=== PATIENT | female | born 1940 | race Caucasian/White ===

== ENCOUNTER 2024-03-12 17:57 | Emergency (ER) | payer OTHER ==
--- OUTSIDE RECORDS SUMMARY | 2024-03-12 18:00 | XMS REPORT | Continuity of Care Document ---
Author Name Unknown Address [address] [facility] 1 [address] [place] [id number] [facility] thconnect Address [address] [facility] 1 [address] [place] [address] Care Team Providers Care Regional Business Development Manager Name Role Phone Latrice Quesada Attending Clinician Unavailable Isra Montes Attending Clinician Unavailable Isra Montes Admitting Clinician Unavailable Payers Payer Name Policy Type Policy Number Effective Date Expirati on Date Source Problems Condition Name Condition Details Condition Category Status Onset Date Resolution Date Last Treatment Date Treating Clinician Comments Source Pain in pelvis Pain in Pelvis Problem Active 2023-03 00:00: 00 [facility] Osteoarthr itis of right hip joint Osteoarthr itis of Right Hip Joint Problem Active 2023-03 00:00: 00 [facility] Allergies, Adverse Reactions, Alerts Allergy Name Allergy Type Status Severity Reaction(s) Onset Date Inactive Date Treating Clinician Comments Source No Known Allergie s DA Active U 2023-03 00:00: 00 [facility] Social History Smoking Status Start Date Stop Date Source Former Smoker [facility] Vital Signs Vital Name Observation Time Observation Value Comments S ource Body Weight 2024-02-12 00:00:00 180 [lb_av] [facility] Height 2024-02-12 00:00:00 65 [in_i] Jeanette[facility] a [facility] BMI (Body Mass Index) 2024-02-12 00:00:00 30 kg/m2 [facility] Procedures Procedure Date / Time Performed Performing Clinicia n Source RADEX PELVIS 1/2 VIEWS 2024-02-12 00:00:00 [facility] Encounters Start Date/Time End Date/Time Encounter Type Admission Type Attending Clinicians Care Facility Care Department Encounter ID Source 2022-08-19 14:13:02 Outpatient Latrice Quesada [facility] [id number] [facility] 2024-03-09 07:17:00 2024-03-10 12:26:00 Outpatient Isra Bone [facility] [id number] [facility] 2024-02-19 18:41:00 2024-02-19 18:41:00 Outpatient Isra Montes [facility]O [id number] 85 [facility] 2024-02-12 00:00:00 2024-02-12 00:00:00 Isra Montes MD: [id number] [place] [address] , Ph. [phone] [place] - [facility] [place] [facility] [place] [id number] [facility] Results Test Description Test Time Test Comments Results Resul t Comments Source - XR PELVIS 1/2 VIEWS 2024-03-10 06:49:00 [facility] : 1940 Sex: F Patient Name: MOISES THOMPSON Unit No: [id number] EXAMS: CPT CODE: [id number] XR PELVIS 1/2 VIEWS 42151 INTRAOPERATIVE LEG LENGTH FILM COMMENT: COMPARISON: No prior exams available. In progress right hip replacement is noted. AP portable right hip COMMENT: The patient is status post joint replacement which is articulating normally. at 0649 Reported and signed by: Fareed Rodriguez MD CC: Isra Montes MD Technologist: Josh Armendariz R.T. Transcribed D/ (0649) [facility] NAME: MOISES THOMPSON [address] [facility] PHYS: Isra Helton MD : 1940 AGE: 83 SEX: F [place] [address] LOC: Y.308 A PHONE #: [phone] EXAM DATE: 03/09/2024 STATUS: [facility] FAX #: [phone] RAD #: D/C DT PAGE 1 Signed Report Patient Name: MOISES THOMPSON Unit No: [id number] EXAMS: CPT CODE: [id number] XR PELVIS 1/2 VIEWS 45634 (Continued) Orig Print D/T: S: 03/10/2024 (0652) [facility] NAME: MOISES THOMPSON [address] [facility] PHYS: Isra Helton MD : 1940 AGE: 83 SEX: F [place], [place] [address] LOC: Y.308 A PHONE #: [phone] EXAM DATE: 03/09/2024 STATUS: [facility] FAX #: [phone] RAD #: D/C DT PAGE 2 Signed Report - XR PELVIS 1/2 VIEWS 2024-03-10 06:49:00 [facility] : 1940 Sex: F Patient Name: MOISES THOMPSON Unit No: [id number] EXAMS: CPT CODE: [id number] XR PELVIS 1/2 VIEWS 71665 INTRAOPERATIVE LEG LENGTH FILM COMMENT: COMPARISON: No prior exams available. In progress right hip replacement is noted. AP portable right hip COMMENT: The patient is status post joint replacement which is articulating normally. at 0649 Reported and signed by: Fareed Rodriguez MD CC: Isra Montes MD Technologist: ANA QUINONES ARRT; ANNABELLE SYED ARRT Transcribed D/ (0649) [facility] NAME: MOISES THOMPSON 01 [facility] PHYS: Isra Helton MD : 1940 AGE: 83 SEX: F [place] [address] LOC: Y.308 A PHONE #: [phone] EXAM DATE: 03/09/2024 STATUS: [facility] FAX #: [phone] RAD #: D/C DT PAGE 1 Signed Report Patient Name: MOISES THOMPSON Unit No: [id number] EXAMS: CPT CODE: [id number] XR PELVIS 1/2 VIEWS 98099 (Continued) Orig Print D/T: S: 03/10/2024 (0652) [facility] NAME: MOISES THOMPSON [address] [facility] PHYS: Isra Helton MD : 1940 AGE: 83 SEX: F [place], [place] [address] LOC: Y.308 A PHONE #: [phone] EXAM DATE: 03/09/2024 STATUS: [facility] FAX #: [phone] RAD #: D/C DT PAGE 2 Signed Report SPECIMEN COMMENT: POD #1
--- NOTE | 2024-03-12 19:25 | RAD REPORT ---
EXAMINATION: XR Hip Right 2 View CLINICAL INDICATION: Female, 83 years old. [facility] MAIN fall, hip sx was Friday Bed: TECHNIQUE: 2 view radiograph of the right hip were obtained. COMPARISON: No prior exam. FINDINGS: No evidence of fracture or dislocation. Right hip arthroplasty hardware in satisfactory ali gnment. No evidence of complications. No suspicious focal bone lesion. Soft tissues are unremarkable. IMPRESSION: No acute or significant abnormalities.
--- NOTE | 2024-03-12 19:25 | RAD REPORT ---
EXAM: CT brain without contrast HISTORY: fall COMPARISON: None TECHNIQUE: Multiple contiguous axial images were obtained and a CT of the brain without contrast. Sag ittal and coronal reformats were performed. FINDINGS: No evidence of hydrocephalus, intracranial hemorrhage, or extra-axial fluid collection. Mild diffuse parenchymal volume loss. Partially empty sella noted. The brain is otherwise normal in m orphology. The calvarium is intact. The visualized paranasal sinuses and mastoid air cells are essentially clear . IMPRESSION: No evidence of acute intracranial abnormality. EXAM: CT of the cervical spine without contrast HISTORY: fall COMPARISON: None TECHNIQUE: Multiple contiguous axial images were obtained in a CT of the cervical spine without contr ast. Sagittal and coronal reformats were performed. FINDINGS: The vertebral bodies demonstrate normal height and alignment. No evidence of acute fracture or subluxation.. [id number]-[id number] degenerative changes most pronounced at C5-6, with endplate spurring contributing to mild central canal stenosis, with uncovertebral joint spurring contributing to bilateral moderate neural foraminal narrowing. No prevertebral soft tissue swelling is seen. The posterior facets are well aligned. Normal alignment of the skull base with the cervical spine is seen. The lung apices are unremarkable. IMPRESSION: No evidence of acute osseous abnormality of the cervical spine. Degenerative changes as above.
--- NOTE | 2024-03-12 19:45 | EDPHYS ---
Physician Documentation [facility] Name: Jelly Pollard Age: 83 yrs Sex: Female : 1940 Arrival Date: 03/12/2024 Time: 17:57 Bed 6 Private MD: ED Physician Cuong Palma HPI: 03/12 21:07 This 83 yrs old Female presents to ER via Wheelchair with complaints of Fall Injury - ms3 Post Sx. 21:07 Jelly Pollard is an 83-year-old female who presents to the emergency department ms3 following a fall. She reports having had right hip surgery on Friday, performed by Dr. Isra Montes at the [facility]. Today, while using a walker to get off the toilet, she lost her balance and fell into the shower. She took her first pain pill this morning. She reports no pain while sitting but increased pain when standing. She did not lose consciousness during the fall. 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 Historical: - Allergies: 18:30 No Known Allergies; tm6 - PMHx: 18:30 Hypercholesterolemia; Hypertensive disorder; tm6 - PSHx: 18:30 right hip replacement; tm6 - Immunization history:: Flu vaccine is up to date. - Infectious Disease History:: Denies. - Social history:: Smoking status: Patient/guardian denies using tobacco, but has a distant history of tobacco abuse. ROS: 21:07 Constitutional: Negative for fever, and chills. Cardiovascular: Negative for chest ms3 pain, and palpitations. Respiratory: Negative for shortness of breath, cough, wheezing, and pleuritic chest pain, Abdomen/GI: Negative for abdominal pain, nausea, vomiting, diarrhea, and constipation, 21:07 MS/extremity: Positive for Right hip pain, Exam: 21:07 Constitutional: This is a well developed, well nourished patient who is awake, alert, ms3 and in no acute distress. Chest/axilla: Normal chest wall appearance and motion. Nontender with no deformity. Cardiovascular: Regular rate and rhythm with a normal S1 and S2. No gallops, murmurs, or rubs. Normal PMI, no JVD. No pulse deficits. Respiratory: Lungs have equal breath sounds bilaterally, clear to auscultation and percussion. No rales, rhonchi or wheezes noted. No increased work of breathing, no retractions or nasal flaring. Abdomen/GI: Soft, non-tender, with normal bowel sounds. No distension or tympany. No guarding or rebound. No evidence of tenderness throughout. Skin: Warm, dry with normal turgor. Normal color with no rashes, no lesions, and no evidence of cellulitis. 21:07 Musculoskeletal/extremity: Right lateral hip incision without wound dehiscence. No dressing present on incision. Vital Signs: 18:28 BP 141 / 67; Pulse 54; Resp 19; Temp 97.7(TE); Pulse Ox 99% on R/A; MAP 87 mmHg; Weight tm6 80.29 kg; Height 5 ft. 3 in. ; Pain 0/10; 20:20 BP 138 / 74; Pulse 57; Resp 18; Pulse Ox 99% ; cp4 18:28 Body Mass Index 31.35 (80.29 kg, 160.02 cm) tm6 18:28 Pain Scale: Adult tm6 MDM: 18:14 Medical Screening Exam initiated ms3 21:07 Differential diagnosis: contusion, fracture, sprain, strain. Differential diagnosis: ms3 closed head injury. Data reviewed: vital signs, nurses notes. Historians other than the Patient: Family Member: . Care significantly affected by the following chronic conditions: Hypertension. Counseling: I had a detailed discussion with the patient and/or guardian regarding the historical points, exam findings, and any diagnostic results supporting the discharge/admit diagnosis, radiology results, the need for outpatient follow up, to return to the emergency department if symptoms worsen or persist or if there are any questions or concerns that arise at home. Special discussion: I discussed with the patient/guardian in detail that at this point there is no indication for admission to the hospital. It is understood, however, that if the symptoms persist or worsen the patient needs to return immediately for re-evaluation. ED course: Discussed negative CT of head and neck with the patient and her family. Right hip x-ray does not reveal fracture or abnormalities. Patient to follow-up Dr. Montes in 2 to 3 days for reevaluation. Patient and her family understand and agree with plan. All questions were answered. Return precautions discussed include worsening symptoms, or any other concerns. On reevaluation patient is alert, no apparent distress, nontoxic-appearing, speaking full sentences. 03/12 18:15 Order name: CT Head C Spine; Complete Time: 19:37 ms3 03/12 18:15 Order name: Hip Right 2 View XRAY; Complete Time: 19:37 ms3 Administered Medications: No medications were administered Disposition Summary: 03/12/24 19:45 Discharge Ordered Notes: Location: Home ms3 Condition: Stable ms3 Diagnosis - Fall on same level, unspecified ms3 - Pain in right hip ms3 Followup: ms3 - With: Private Physician - When: 2 - 3 days - Reason: Discharge Instructions: - Discharge Summary Sheet ms3 - Musculoskeletal Pain ms3 Forms: - Medication Reconciliation Form ms3 - Antibiotic Education ms3 - Prescription Opioid Use ms3 - Patient Portal Instructions ms3 - Leadership Thank You Letter ms3 Signatures: Dispatcher [employer] EDMS Cuong Palma DO DO ms3 Fiilpe Flannery RN RN tm6 Corrections: (The following items were deleted from the chart) 18:15 18:15 Head C Spine MPR Wo Con+CT.RAD.BRZ ordered. EDMS EDMS 18:15 18:15 Hip Right 2 View+RAD.RAD.BRZ ordered. EDMS EDMS
--- NOTE | 2024-03-12 19:45 | ER ---
Nurse's Notes [facility] Name: Jelly Pollard Age: 83 yrs Sex: Female : 1940 Arrival Date: 03/12/2024 Time: 17:57 Bed 6 Private MD: Diagnosis: Fall on same level, unspecified;Pain in right hip Presentation: 03/12 18:28 Chief complaint: Patient states: had right hip replacement on Friday, fell today about tm6 4pm when using the restroom. Coronavirus screen: Client denies travel out of the [place] in the last 14 days. Ebola Screen: Patient negative for fever greater than or equal to 101.5 degrees Fahrenheit, and additional compatible Ebola Virus Disease symptoms Patient denies exposure to infectious person. Patient denies travel to an Ebola-affected area in the 21 days before illness onset. No symptoms or risks identified at this time. Initial Sepsis Screen: Does the patient meet any 2 criteria? No. Patient's initial sepsis screen is negative. Does the patient have a suspected source of infection? No. Patient's initial sepsis screen is negative. Risk Assessment: Do you want to hurt yourself or someone else? Patient reports no desire to harm self or others. Onset of symptoms was March 12, 2024. 18:28 Method Of Arrival: Wheelchair tm6 18:28 Acuity: DEANA 4 tm6 Triage Assessment: 18:30 General: Appears in no apparent distress. Behavior is calm, cooperative. Pain: tm6 Complains of pain in right hip. EENT: No signs and/or symptoms were reported regarding the EENT system. Neuro: Level of Consciousness is awake, alert, obeys commands, Oriented to person, place, time, situation. Cardiovascular: Patient's skin is warm and dry. Respiratory: Airway is patent Respiratory effort is even, unlabored, Respiratory pattern is regular, symmetrical. GI: No signs and/or symptoms were reported involving the gastrointestinal system. Abdomen is round non-distended. : No signs and/or symptoms were reported regarding the genitourinary system. Derm: No signs and/or symptoms reported regarding the dermatologic system. Musculoskeletal: Reports pain in right hip. 18:30 General: Appears in no apparent distress. uncomfortable, Behavior is calm, cooperative, bp appropriate for age. Pain: Complains of pain in left hip. EENT: No deficits noted. Neuro: No deficits noted. Cardiovascular: No deficits noted. Respiratory: No deficits noted. GI: No signs and/or symptoms were reported involving the gastrointestinal system. : No signs and/or symptoms were reported regarding the genitourinary system. Derm: No deficits noted. Musculoskeletal: Reports pain in left hip. Historical: - Allergies: 18:30 No Known Allergies; tm6 - PMHx: 18:30 Hypercholesterolemia; Hypertensive disorder; tm6 - PSHx: 18:30 right hip replacement; tm6 - Immunization history:: Flu vaccine is up to date. - Infectious Disease History:: Denies. - Social history:: Smoking status: Patient/guardian denies using tobacco, but has a distant history of tobacco abuse. Screenin:30 [facility] ED Fall Risk Assessment (Adult) History of falling in the last 3 months, bp including since admission Yes- single mechanical fall (1 pt) Confusion or Disorientation No (0 pts) Intoxicated or Sedated No (0 pts) Impaired Gait Yes (1 pt) Mobility Assist Device Used No (0 pt) Altered Elimination No (0 pt) Score/Fall Risk Level 0 - 2 = Low Risk Oriented to surroundings, Maintained a safe environment. Abuse screen: Denies threats or abuse. Denies injuries from another. Nutritional screening: No deficits noted. Tuberculosis screening: No symptoms or risk factors identified. Assessment: 18:30 General: Appears in no apparent distress. Behavior is calm, cooperative, appropriate bp for age. Vital Signs: 18:28 BP 141 / 67; Pulse 54; Resp 19; Temp 97.7(TE); Pulse Ox 99% on R/A; MAP 87 mmHg; Weight tm6 80.29 kg; Height 5 ft. 3 in. ; Pain 0/10; 20:20 BP 138 / 74; Pulse 57; Resp 18; Pulse Ox 99% ; cp4 18:28 Body Mass Index 31.35 (80.29 kg, 160.02 cm) tm6 18:28 Pain Scale: Adult tm6 ED Course: 17:59 Patient arrived in ED. ra3 18:00 Cuong Palma DO is Attending Physician. ms3 18:25 Arm band placed on Patient placed in an exam room, on a stretcher. ll1 18:30 Triage completed. tm6 18:30 Vincent, Don, RN is Primary Nurse. bp 18:30 Patient has correct armband on for positive identification. bp 18:44 Hip Right 2 View XRAY In Process Unspecified. EDMS 18:47 CT Head C Spine In Process Unspecified. EDMS 20:21 No provider procedures requiring assistance completed. Patient did not have IV access cp4 during this emergency room visit. Wound care: to surgical located on right hip Patient tolerated well. 20:22 Provided Education on: hip pain. cp4 Administered Medications: No medications were administered Medication: 18:30 VIS not applicable for this client. bp Outcome: 19:45 Discharge ordered by MD. ms3 20:21 Discharged to home via wheelchair, cp4 20:21 Condition: stable 20:21 Discharge instructions given to patient, family, Instructed on discharge instructions, follow up and referral plans. Demonstrated understanding of instructions, follow-up care, 20:22 Patient left the ED. cp4 Signatures: Dispatcher [employer] EDMS Don Kaur, RN RN bp Neetu Mcclendon RN RN ll1 Cuong Palma DO DO ms3 Latoya Graham cp4 Filipe Flannery RN RN 6 Anushka Gibbons 3
[2024-03-12 20:30] VITALS: TEMP 97.7; O2SAT 99
[2024-03-12 20:31] VITALS: BP 138/74
== END 2024-03-12 20:22 | disposition home or self-care (01) ==
LOC: ER 17:57
DX: M25.551 Pain in right hip (principal); Z96.641 Presence of right artificial hip joint; W18.30XA Fall on same level, unspecified, initial encounter
CPT/HCPCS: 70450; 72125; 99283

== ENCOUNTER 2024-03-13 10:59 | Inpatient (IN) | payer OTHER ==
--- OUTSIDE RECORDS SUMMARY | 2024-03-13 11:01 | XMS REPORT | Continuity of Care Document ---
Author Name Unknown Address [address] [facility] [address] [place] [address] [facility] thconnect Address [address] [facility] [address] [place] [address] Care Team Providers Care Calenderer Name Role Phone Latrice Quesada Attending Clinician [...] s DA Active U 2023-03 00:00: 00 [facility] Social History Smoking Status Start Date Stop Date Source Former Smoker [facility] Vital Signs Vital Name Observation Time Observation Value Comments S taj BMI (Body Mass Index) 2024-02-12 00:00:00 30 kg/m2 [facility] Body Weight 2024-02-12 00:00:00 180 [lb_av] [facility] Height 2024-02-12 00:00:00 65 [in_i] [facility] Procedures Procedure Date / Time Performed Performing Clinicia n Source RADEX PELVIS 1/2 VIEWS 2024-02-12 00:00:00 [facility] Encounters Start Date/Time End Date/Time Encounter Type Admission Type Attending Clinicians Care Facility Care Department Encounter ID Source 2022-08-19 14:13:02 Outpatient Latrice Quesada [facility] [id number] [facility] 2024-03-09 07:17:00 2024-03-10 12:26:00 Outpatient Isra Bone [facility] [id number] 12 [facility] 2024-02-19 18:41:00 2024-02-19 18:41:00 Outpatient Isra Montes [facility]O [id number] 85 [facility] 2024-02-12 00:00:00 2024-02-12 00:00:00 Isra Montes MD: [id number] [place] [address] , Ph. [phone] [place] [facility] [place] [facility] [place] [id number] [facility] Results Test Description Test Time Test Comments Results Resul t Comments Source - XR PELVIS 1/2 VIEWS 2024-03-10 06:49:00 [facility] : 1940 Sex: F Patient Name: MOISES THOMPSON Unit No: [id number] EXAMS: CPT CODE: [id number] XR PELVIS 1/2 VIEWS 58661 INTRAOPERATIVE LEG LENGTH FILM COMMENT: COMPARISON: No prior exams available. In progress right hip replacement is noted. AP portable right hip COMMENT: The patient is status post joint replacement which is articulating normally. at 0649 Reported and signed by: Fareed Rodriguez MD CC: Isra Montes MD Technologist: Josh Armendariz R.T. Transcribed D/ (0649) [facility] NAME: MOISES THOMPSON [address] [facility] PHYS: Isra Helton MD : 1940 AGE: 83 SEX: F [place] [address] LOC: Y.308 A PHONE #: [phone] EXAM DATE: 03/09/2024 STATUS: REG [facility] FAX #: [phone] RAD #: D/C DT PAGE 1 Signed Report Patient Name: MOISES THOMPSON Unit No: [id number] EXAMS: CPT CODE: [id number] XR PELVIS 1/2 VIEWS 18311 (Continued) Orig Print D/T: S: 03/10/2024 (0652) [facility] NAME: MOISES THOMPSON [address] [facility] PHYS: Isra Helton MD : 1940 AGE: 83 SEX: F [place] [address] LOC: Y.308 A PHONE #: [phone] EXAM DATE: 03/09/2024 STATUS: REG [facility] FAX #: [phone] RAD #: D/C DT PAGE 2 Signed Report - XR PELVIS 1/2 VIEWS 2024-03-10 06:49:00 [facility] : 1940 Sex: F Patient Name: MOISES THOMPSON Unit No: [id number] EXAMS: CPT CODE: [id number] XR PELVIS 1/2 VIEWS 69916 INTRAOPERATIVE LEG LENGTH FILM COMMENT: COMPARISON: No prior exams available. In progress right hip replacement is noted. AP portable right hip COMMENT: The patient is status post joint replacement which is articulating normally. at 0649 Reported and signed by: Fareed Rodriguez MD CC: Isra Montes MD Technologist: ANA QUINONES ARRT; ANNABELLE SYED ARRT Transcribed D/ (0649) [facility] NAME: MOISES THOMPSON [address] [facility] PHYS: Isra Helton MD : 1940 AGE: 83 SEX: F [place], [place] [address] LOC: Y.308 A PHONE #: [phone] EXAM DATE: 03/09/2024 STATUS: REG [facility] FAX #: [phone] RAD #: D/C DT PAGE 1 Signed Report Patient Name: MOISES THOMPSON Unit No: [id number] EXAMS: CPT CODE: [id number] XR PELVIS 1/2 VIEWS 28818 (Continued) Orig Print D/T: S: 03/10/2024 (0652) [facility] NAME: MOISES THOMPSON [address] [facility] PHYS: Isra Helton MD : 1940 AGE: 83 SEX: F [place], [place] [address] LOC: Y.308 A PHONE #: [phone] EXAM DATE: 03/09/2024 STATUS: REG [facility] FAX #: [phone] RAD #: D/C DT PAGE 2 Signed Report SPECIMEN COMMENT: POD #1
[2024-03-13] MEDS ORDERED: NA CHLORIDE 0.9% 1,000 ML ONE (11:25)
[2024-03-13 12:25] LABS: Absolute Eosinophils 0.1 K/uL (0-0.5); Absolute Monocytes 0.6 K/uL (0.1-1.3); Absolute Neutrophil 5.7 K/uL (1.8-8.0); Basophils % 0.1 % (0-1.3); Eosinophils % 0.9 % (0-4.4); Hematocrit 22.6 % (36.0-45.0); Hemoglobin 7.6 g/dL (12.0-15.0); Lymphocytes % 13.3 % (15.3-44.8); MCH 30.3 pg (27.0-35.0); MCHC 33.5 g/dL (32.0-36.0); MCV 90.3 fL (80-100); MPV 7.8 fL (7.6-11.3); Monocytes % 8.5 % (3.3-12.3); Neutrophils % 77.2 % (41.7-73.7); Nucleated Red Blood Cells % 0.1 % (0-0); Platelets 224 thou/uL (152-406); RBC Red Blood Cell Count 2.51 M/uL (3.86-4.86); Red Cell Distribution Width 14.4 % (12.1-15.2)
[2024-03-13 12:27] LABS: PT Prothrombin Time 12.3 SECONDS (9.4-12.5); PTT, Activated Partial Thromb 25.2 SECONDS (24.3-36.9); Protime INR 1.1
[2024-03-13 12:38] LABS: Albumin 2.4 g/dL (3.4-5.0); Albumin/Globulin Ratio 0.9 (1.1-1.8); Anion Gap 10.4 mEq/L (5.0-15.0); Globulin 2.6 g/dL (2.3-3.5); Potassium 4.4 mEq/L (3.5-5.1); Troponin High Sensitivity 41.1 pg/mL (<58.9)
[2024-03-13 13:15] LABS: Specific Gravity 1.009 (1.005-1.030); Urine Bilirubin NEGATIVE (Negative); Urine Blood Negative (Negative); Urine Clarity Clear (Clear); Urine Color Light-Yellow (Yellow); Urine Glucose NEGATIVE (Negative); Urine Ketones NEGATIVE (Negative); Urine Microscopic Reflex YN NO UMIC; Urine Nitrite NEGATIVE (Negative); Urine Protein NEGATIVE (Negative); Urine Urobilinogen Normal (Normal); Urine pH 6.5 (5.0-7.0)
--- NOTE | 2024-03-13 13:28 | RAD REPORT ---
EXAMINATION: ONE VIEW CHEST XR CLINICAL INDICATION: Female, 83 years old.,weak TECHNIQUE: Frontal chest projection is submitted. Examination is limited by patient positioning and t echnique. COMPARISON: No prior exam. FINDINGS: The lungs are well inflated and clear. No pneumothorax or sizable effusion. The heart is normal in s ize. Mediastinal contours are within normal limits except for some tortuosity of the thoracic aorta. IMPRESSION: No acute intrathoracic abnormalities.
--- NOTE | 2024-03-13 16:27 | RAD REPORT ---
EXAMINATION: CT Abdomen Pelvis W Contrast CLINICAL INDICATION: Female, 83 years old. drop in hgb, recent right hip surg, assess abd TECHNIQUE: CT abdomen and pelvis was performed, after the administration of IV contrast, as per depar tment protocol. Axial, sagittal and coronal reconstructions were obtained. One or more of the following dose reduction techniques were used: Automated exposure control, adjustment of the mA and k V according to patient size, and iterative reconstruction. Unless otherwise specified, incidental findings do not require dedicated imaging follow-up. COMPARISON: No prior exam. FINDINGS: LOWER CHEST: The visualized lung bases are clear. LIVER: Normal in size and contour. No focal lesion. BILIARY SYSTEM: Status post cholecystectomy. SPLEEN: Normal size. No focal lesion. PANCREAS: No mass, ductal dilation, or merry-pancreatic fluid. ADRENALS: Normal; no mass. KIDNEYS: Normal size and contour. No hydronephrosis. URINARY BLADDER: Decompressed with Lemon catheter in place. Uterus is retroverted with calcified fibroids near the fundus. GASTROINTESTINAL TRACT: Small sliding hiatal hernia. No evidence of free air, significant intra-abdom inal free fluid, bowel obstruction or abscess. APPENDIX: Normal appendix. LYMPH NODES: No lymphadenopathy. MUSCULOSKELETAL: No acute or suspicious osseous abnormality. ADDITIONAL FINDINGS: Sequelae of right hip arthroplasty. Crescentic components of hyperdense hemorrha ge interposed between the gluteus maximums and medius measuring 7.3 x 1.5 cm in greatest axial dimension. Streak artifact relating to the arthroplasty limits evaluation. IMPRESSION: Crescentic components of hyperdense hemorrhage interposed between the right gluteus medius frantz an d medius measuring 7.3 x 1.5 cm in greatest axial dimensions, suggesting small hematoma in the right hip arthroplasty bed. No acute or concerning abnormalities seen within the abdomen or pelvis. Incidental findings as above.
[2024-03-13] MEDS ORDERED: NA CHLORIDE 0.9% 250 ML ONE ×2 (16:33→20:00)
--- NOTE | 2024-03-13 17:06 | EDPHYS ---
Physician Documentation [facility] Name: Jelly Pollard Age: 83 yrs Sex: Female : 1940 Arrival Date: 03/13/2024 Time: 10:59 Bed 16 Private MD: ED Physician Codey Schneider HPI: 03/13 11:59 This 83 yrs old Female presents to ER via EMS with complaints of generalized weakness sp3 and low BP. 11:59 83-year-old female with history of hypertension, hyperlipidemia presents with sp3 generalized weakness for the last 48 hours. Patient had a right hip replacement performed at [facility] 4 days ago. Yesterday evening she sustained a mechanical fall while ambulating and pivoting from a wheelchair. She was evaluated here with x-ray of the right hip and CT scans of the head and C-spine demonstrated no significant findings. She was discharged home at that time. She returns today for worsening generalized weakness, dehydration and low blood pressure. EMS gave epinephrine and route to maintain BP. On arrival BP 97/47 with a pulse of 55. Limited ROS, history and physical secondary to age and patient being weak. Most of the history from family. They are trying to get her into a rehab facility.. Historical: - Allergies: 11:19 No Known Allergies; rs5 - PMHx: 11:19 Hypercholesterolemia; Hypertensive disorder; rs5 - PSHx: 11:19 Right hip replacement; rs5 - Immunization history:: Adult Immunizations up to date. - Infectious Disease History:: Denies. - Social history:: Smoking status: Patient denies any tobacco usage or history of. ROS: 12:01 Constitutional: Negative for fever, chills, and weight loss, Eyes: Negative for injury, sp3 pain, redness, and discharge, Neck: Negative for injury, pain, and swelling, Cardiovascular: Negative for chest pain, palpitations, and edema, Respiratory: Negative for shortness of breath, cough, wheezing, and pleuritic chest pain, Abdomen/GI: Negative for abdominal pain, nausea, vomiting, diarrhea, and constipation, Back: Negative for injury and pain, Skin: Negative for injury, rash, and discoloration, Neuro: Negative for headache, weakness, numbness, tingling, and seizure, 12:01 All other systems are negative, Exam: 12:01 Constitutional: This is a well developed, well nourished patient who is awake, alert, sp3 and in no acute distress. Head/Face: Normocephalic, atraumatic. Eyes: Pupils equal round and reactive to light, extra-ocular motions intact. Lids and lashes normal. Conjunctiva and sclera are non-icteric and not injected. Cornea within normal limits. Periorbital areas with no swelling, redness, or edema. Neck: Trachea midline, no thyromegaly or masses palpated, and no cervical lymphadenopathy. Supple, full range of motion without nuchal rigidity, or vertebral point tenderness. No Meningismus. Chest/axilla: Normal chest wall appearance and motion. Nontender with no deformity. No lesions are appreciated. Cardiovascular: Regular rate and rhythm with a normal S1 and S2. No gallops, murmurs, or rubs. Normal PMI, no JVD. No pulse deficits. Respiratory: Lungs have equal breath sounds bilaterally, clear to auscultation and percussion. No rales, rhonchi or wheezes noted. No increased work of breathing, no retractions or nasal flaring. Abdomen/GI: Soft, non-tender, with normal bowel sounds. No distension or tympany. No guarding or rebound. No evidence of tenderness throughout. Back: No spinal tenderness. No costovertebral tenderness. Full range of motion. Skin: Warm, dry with normal turgor. Normal color with no rashes, no lesions, and no evidence of cellulitis. MS/ Extremity: Pulses equal, no cyanosis. Neurovascular intact. Full, normal range of motion. Neuro: Awake and alert, GCS 15, oriented to person, place, time, and situation. Cranial nerves II-XII grossly intact. Motor strength 5/5 in all extremities. Sensory grossly intact. Cerebellar exam normal. Normal gait. 12:01 Constitutional: The patient appears Patient in no acute distress however globally just weak. Currently BP 106/65. 12:14 ECG was reviewed by the Attending Physician. EKG demonstrates sinus bradycardia 55 bpm sp3 with normal intervals, normal QRS, normal axis, nonspecific diffuse ST/T changes without evidence of acute ischemia. Vital Signs: 11:10 BP 97 / 47; Pulse 55; Resp 17; Temp 98(O); Pulse Ox 97% on R/A; rs5 12:14 BP 113 / 44; Pulse 52; Resp 18; Pulse Ox 97% on R/A; rs5 16:55 BP 160 / 59; Pulse 56; Resp 16; Temp 97.9; Pulse Ox 99% ; rs5 17:05 BP 152 / 56; Pulse 57; Resp 16; Temp 98(O); Pulse Ox 99% on R/A; rs5 17:10 BP 159 / 56; Pulse 55; Resp 17; Temp 97.9(O); Pulse Ox 99% ; rs5 19:10 BP 164 / 57; Pulse 55; Resp 17; Temp 98(O); Pulse Ox 99% ; rs5 19:30 BP 168 / 58; Pulse 64; Resp 18; Temp 98(O); Pulse Ox 99% on R/A; Pain 0/10; rg5 21:30 BP 160 / 63; Pulse 64; Resp 17; Pulse Ox 97% on R/A; Pain 0/10; rg5 19:30 Pain Scale: Adult rg5 21:30 Pain Scale: Adult rg5 MDM: 11:39 Medical Screening Exam initiated sp3 12:02 Data reviewed: vital signs, nurses notes, old medical records, lab test result(s), EKG, sp3 radiologic studies. ED course: 83-year-old female with generalized weakness. Differential diagnosis includes general deconditioning from recent surgery, electrolyte abnormality, dehydration, and to a lesser degree infection with UTI or pneumonia or other process, acute coronary syndrome, among others. Workup will be broad and include chest x-ray, EKG, UA, general labs, IV fluids and general supportive care. Disposition probable admission with 23 observation for further for supportive care and probable rehab disposition after acute care stay.. 13:55 ED course: Hemoglobin returned at 7.6 in the setting of normal MCV. I am concerned sp3 about either GI bleed or bleeding into the hip cavity. Will obtain CT scan of the abdomen pelvis to further assess, administer 2 units PRBCs, and probable transfer depending on CT results.. 17:02 ED course: I spoke to Dr. Montes at [facility] orthopedics who did the surgery. He sp3 states that on her discharge her hemoglobin was 9.1 which makes the delta much less than initially thought. He is okay giving her PRBCs and discharging her in the morning with follow-up in his clinic Friday or Friday. I discussed with the hospitalist who will be seeing her and admitting her for observation. Patient has no signs or symptoms of GI bleed, melena, dark stools or significant abdominal pain. CT scan of the abdomen pelvis demonstrates no other abdominal abnormalities.. 03/13 11:40 Order name: Blood Culture Adult (2) 3 03/13 11:40 Order name: CBC with Diff; Complete Time: 13:26 [facility] 03/13 11:40 Order name: CMP; Complete Time: 13: [facility] 03/13 11:40 Order name: Lactate w/ 2H reflex if indic.; Complete Time: 13: [facility] 03/13 11:40 Order name: Protime (+inr); Complete Time: 13: [facility] 03/13 11:40 Order name: Ptt, Activated; Complete Time: 13: [facility] 03/13 11:40 Order name: Urinalysis w/ reflexes; Complete Time: 13:26 [facility] 03/13 11:40 Order name: Troponin High Sensitivity; Complete Time: 13: [facility] 03/13 13:59 Order name: Type And Screen [facility] 03/13 14:00 Order name: LAB Add On 03/13 15:28 Order name: ABO/RH no charge; Complete Time: 16:28 [facility] 03/13 15:38 Order name: Packed RBC Leukored [facility] 03/13 19:30 Order name: CBC with Automated Diff [facility] 03/13 19:30 Order name: CBC with Automated Diff [facility] 03/13 19:30 Order name: CBC with Manual Differential [facility] 03/13 19:30 Order name: CBC with Manual Differential [facility] 03/13 19:30 Order name: Comprehensive Metabolic Panel [facility] 03/13 19:30 Order name: Comprehensive Metabolic Panel [facility] 03/13 19:30 Order name: Iron [facility] 03/13 19:30 Order name: Iron [facility] 03/13 19:30 Order name: Protime (+INR) [facility] 03/13 19:30 Order name: Protime (+INR) [facility] 03/13 19:30 Order name: PTT, Activated Partial Thromb [facility] 03/13 19:30 Order name: PTT, Activated Partial Thromb [facility] 03/13 19:30 Order name: Vitamin B12 Level [facility] 03/13 19:30 Order name: Vitamin B12 Level [facility] 03/13 19:31 Order name: CBC with Automated Diff [facility] 03/13 11:40 Order name: Chest Single View XRAY; Complete Time: 13:29 3 03/13 13:54 Order name: CT Abd/Pelvis - IV Contrast Only; Complete Time: 16:28 3 03/13 11:40 Order name: Cardiac monitoring; Complete Time: 12:15 3 03/13 11:40 Order name: EKG - Nurse/Tech; Complete Time: 12:16 3 03/13 11:40 Order name: IV Saline Lock - Large Bore; Complete Time: 12:16 3 03/13 11:40 Order name: Labs collected and sent; Complete Time: 12:16 3 03/13 11:40 Order name: O2 Per Protocol; Complete Time: 12:16 3 03/13 11:40 Order name: O2 Sat Monitoring; Complete Time: 12:16 3 03/13 11:40 Order name: Vital Signs; Complete Time: 12:16 sp3 Administered Medications: 11:20 Drug: NS 0.9% IV 1000 ml IV at 1000 ml once; to be given as a bolus over 60 minutes rs5 Route: IV; Rate: 1000 ml; Site: right antecubital; Disposition Summary: 03/13/24 17:06 Hospitalization Ordered Notes: Hospitalization Status: Observation sp3 Provider: Minda Pang Location: Telemetry/[facility] (observation) sp3 Condition: Stable sp3 Problem: new sp3 Symptoms: have worsened sp3 Bed/Room Type: Standard sp3 Room Assignment: 216(03/13/24 20:00) rv1 Diagnosis - Generalized weakness, right hip hematoma postoperative, anemia sp3 Forms: - Medication Reconciliation Form sp3 - SBAR form sp3 - Leadership Thank You Letter sp3 Signatures: Dispatcher [employer] EDCodey Nelson MD MD sp3 Brooke Orta rv1 Hasmukh Laurent, DANIS RN rs5 Corrections: (The following items were deleted from the chart) 15:00 13:54 PACKED RBC LEUKORED+BB.LAB.BRZ ordered. [facility] EDMS 15:00 13:57 ABO/RH typing ordered. [facility] EDMS 15:00 13:57 Antibody Screen ordered. [facility] EDMS 20:00 17:06 sp3 rv1
--- NOTE | 2024-03-13 17:06 | ER ---
Nurse's Notes [facility] Name: Jelly Pollard Age: 83 yrs Sex: Female : 1940 Arrival Date: 03/13/2024 Time: 10:59 Bed 16 Private MD: Diagnosis: Generalized weakness, right hip hematoma postoperative, anemia Presentation: 03/13 11:10 Chief complaint: EMS states: Daughter toned out EMS for generalized weakness x3 days. rs5 Hypotensive on scene for EMS systolic in 80's. Discharged home 3 days ago for right hip repair. Seen here yesterday for a fall. Coronavirus screen: At this time, the client does not indicate any symptoms associated with coronavirus-19. Ebola Screen: No symptoms or risks identified at this time. Initial Sepsis Screen: Does the patient meet any 2 criteria? No. Patient's initial sepsis screen is negative. Does the patient have a suspected source of infection? No. Patient's initial sepsis screen is negative. Risk Assessment: Do you want to hurt yourself or someone else? Patient reports no desire to harm self or others. Onset of symptoms was March 13, 2024. 11:10 Method Of Arrival: EMS: [facility] rs5 11:10 Acuity: DEANA 3 rs5 11:10 Care prior to arrival: IV initiated. 18 GA, in the right wrist. rs5 Historical: - Allergies: 11:19 No Known Allergies; rs5 - PMHx: 11:19 Hypercholesterolemia; Hypertensive disorder; rs5 - PSHx: 11:19 Right hip replacement; rs5 - Immunization history:: Adult Immunizations up to date. - Infectious Disease History:: Denies. - Social history:: Smoking status: Patient denies any tobacco usage or history of. Screenin:11 [facility] ED Fall Risk Assessment (Adult) History of falling in the last 3 months, rs5 including since admission Yes- single mechanical fall (1 pt) Confusion or Disorientation No (0 pts) Intoxicated or Sedated No (0 pts) Impaired Gait Yes (1 pt) Mobility Assist Device Used Yes (1 pt) Altered Elimination No (0 pt) Score/Fall Risk Level 3 or more points = High Risk Oriented to surroundings, Maintained a safe environment, Provided non-skid footwear, Hourly rounding (assess needs \T\ fall precautionary measures) done. Abuse screen: Denies threats or abuse. Nutritional screening: No deficits noted. Tuberculosis screening: No symptoms or risk factors identified. Assessment: 11:10 General: Appears in no apparent distress. uncomfortable, Behavior is cooperative. Pain: rs5 Denies pain. Neuro: Level of Consciousness is awake, alert, obeys commands, Oriented to person, place, time, situation. Cardiovascular: Patient's skin is warm and dry. Respiratory: Airway is patent Respiratory effort is even, unlabored, Respiratory pattern is regular, symmetrical. GI: Abdomen is round non-distended, Abd is soft and non tender X 4 quads. : No signs and/or symptoms were reported regarding the genitourinary system. EENT: No signs and/or symptoms were reported regarding the EENT system. Derm: Skin is intact, Skin is pink, warm \T\ dry. Musculoskeletal: Range of motion: intact in all extremities, Reports generalized weakness. 12:13 Reassessment: Patient and/or family updated on plan of care and expected duration. Pain rs5 level reassessed. Patient is alert, oriented x 3, equal unlabored respirations, skin warm/dry/pink. 13:33 Reassessment: Patient and/or family updated on plan of care and expected duration. Pain rs5 level reassessed. Patient is alert, oriented x 3, equal unlabored respirations, skin warm/dry/pink. 14:44 Reassessment: Patient and/or family updated on plan of care and expected duration. Pain rs5 level reassessed. Patient is alert, oriented x 3, equal unlabored respirations, skin warm/dry/pink. 15:58 Reassessment: Patient and/or family updated on plan of care and expected duration. Pain rs5 level reassessed. Patient is alert, oriented x 3, equal unlabored respirations, skin warm/dry/pink. 17:19 Reassessment: to bedside for blood transfusion\T\1650, rate started at 50 ml/hr, remained rs5 with pt for first 15 min. No adverse reaction noted. rate increased to 175 ml/hr, see paper charting for more information . 18:22 Reassessment: Patient and/or family updated on plan of care and expected duration. Pain rs5 level reassessed. Patient is alert, oriented x 3, equal unlabored respirations, skin warm/dry/pink. 19:07 Reassessment: first unit of blood transfusion complete, no adverse reaction noted. rs5 19:20 Reassessment: Patient and/or family updated on plan of care and expected duration. Pain rs5 level reassessed. Patient is alert, oriented x 3, equal unlabored respirations, skin warm/dry/pink. [facility] . 19:28 Reassessment: Patient and/or family updated on plan of care and expected duration. Pain rs5 level reassessed. Patient is alert, oriented x 3, equal unlabored respirations, skin warm/dry/pink. 20:00 Reassessment: No changes from previously documented assessment. Patient and/or family rg5 updated on plan of care and expected duration. Pain level reassessed. Patient is alert, oriented x 3, equal unlabored respirations, skin warm/dry/pink. 21:00 Reassessment: No changes from previously documented assessment. Patient and/or family rg5 updated on plan of care and expected duration. Pain level reassessed. Patient is alert, oriented x 3, equal unlabored respirations, skin warm/dry/pink. 22:00 Reassessment: No changes from previously documented assessment. Patient and/or family rg5 updated on plan of care and expected duration. Pain level reassessed. Patient is alert, oriented x 3, equal unlabored respirations, skin warm/dry/pink. Vital Signs: 11:10 BP 97 / 47; Pulse 55; Resp 17; Temp 98(O); Pulse Ox 97% on R/A; rs5 12:14 BP 113 / 44; Pulse 52; Resp 18; Pulse Ox 97% on R/A; rs5 16:55 BP 160 / 59; Pulse 56; Resp 16; Temp 97.9; Pulse Ox 99% ; rs5 17:05 BP 152 / 56; Pulse 57; Resp 16; Temp 98(O); Pulse Ox 99% on R/A; rs5 17:10 BP 159 / 56; Pulse 55; Resp 17; Temp 97.9(O); Pulse Ox 99% ; rs5 19:10 BP 164 / 57; Pulse 55; Resp 17; Temp 98(O); Pulse Ox 99% ; rs5 19:30 BP 168 / 58; Pulse 64; Resp 18; Temp 98(O); Pulse Ox 99% on R/A; Pain 0/10; rg5 21:30 BP 160 / 63; Pulse 64; Resp 17; Pulse Ox 97% on R/A; Pain 0/10; rg5 19:30 Pain Scale: Adult rg5 21:30 Pain Scale: Adult rg5 ED Course: 11:09 Patient arrived in ED. iw 11:10 Hasmukh Laurent, RN is Primary Nurse. rs5 11:14 Triage completed. rs5 11:15 Inserted saline lock: 20 gauge in right antecubital area, using aseptic technique. rs5 11:31 Codey Schneider MD is Attending Physician. sp3 13:14 Chest Single View XRAY In Process Unspecified. EDMS 15:13 CT Abd/Pelvis - IV Contrast Only In Process Unspecified. EDMS 16:[address] called [address] Dr. Isra Montes with [facility] group. sp 17:05 Minda Pang MD is Hospitalizing Provider. sp3 19:00 No provider procedures requiring assistance completed. rg5 19:00 Arm band placed on right wrist. rg5 19:00 Patient has correct armband on for positive identification. Bed in low position. Call rg5 light in reach. Side rails up X 1. Provided Education on: Blood Transfusion. 19:00 Door closed. Noise minimized. Warm blanket given. rg5 22:00 Patient admitted, IV remains in place. intact, No redness/swelling at site. rg5 Administered Medications: 11:20 Drug: NS 0.9% IV 1000 ml IV at 1000 ml once; to be given as a bolus over 60 minutes rs5 Route: IV; Rate: 1000 ml; Site: right antecubital; Medication: 19:00 VIS not applicable for this client. rg5 Outcome: 17:06 Decision to Hospitalize by Provider. sp3 22:00 Admitted to Med/surg accompanied by nurse, via stretcher, rg5 22:00 Condition: stable 22:00 Instructed on the need for admit, 22:07 Patient left the ED. rg5 Signatures: Dispatcher [employer] EDMS Deborah Bustos Irene, RN RN iw Patel, Setul, MD MD sp3 Hasmukh Laurent, DANIS MOSCOSO rs5 Jose Miguel Jara RN RN rg5
--- NOTE | 2024-03-13 17:58 | P.CNS ---
Date of Consult: 03/13/24 Reason for Consult: Status post fall status post right total hip arthroplasty with hematoma Requesting Physician: Codey Schneider Chief Complaint: Hematoma of the right hip History of Present Illness: Patient is a 83-year-old female who is status post right total hip arthroplasty. This was done on March 08, 2024. Patient was monitored postoperatively and she was discharged on the following day. Patient stated that when she was get ting ready to go home she felt lightheaded and faint. At home she was weak and on Friday while she was at home she was not really getting around well and staying in bed quite a bit because she was having more pain out of proportion and what she should have been having. On , she was looking weaker and really feeling nauseated. On Friday she had gone to the bathroom and fallen into the bathtub. She was able to pull herself out of there and came into the ER. In the ER initial x-rays did not reveal any significant abnormalities. Patient went home and at home she was still not really doing much. This morning her blood pressure was 60 over 40s. EMS was called and apparently they gave her a round of epi and IV fluids and brought her back into the emergency room. Her hemoglobin had dropped from 9.4 at discharge to 7.6. CT scans done today showed a 7 cm x 1.5 cm hematoma. Patient is having exquisite tenderness on any kind of movement of the right lower extremity. She appears to have a significant amount of bleeding into the right leg. Her orthopedic physician was contacted regarding transfer of care; however, he felt patient could get transfused at her hospital and possibly discharge. She does appear to have significant bleeding and at this time will probably advise for patient to be transferred under his care. I will talk to her orthopedic doctor and see what they recommend. - Past Medical/Surgical History Past Medical History: Patient denies medical history -: Right total hip arthroplasty; spinal anesthesia - Family History Father Family History: Reviewed- Non-Contributory - Social History Smoking Status: Former smoker Alcohol use: No CD- Drugs: No Review of Systems 10-point ROS is otherwise unremarkable Physical Examination Reviewed General: Alert, In no apparent distress, Oriented x3 HEENT: Atraumatic, PERRLA, Mucous membr. moist/pink, EOMI, Sclerae nonicteric Neck: Supple, 2+ carotid pulse no bruit, No LAD, Without JVD or thyroid abnormality Respiratory: Clear to auscultation bilaterally, Normal air movement Cardiovascular: Regular rate/rhythm, Normal S1 S2 Gastrointestinal: Normal bowel sounds, Soft and benign, Non-distended, No tenderness Musculoskeletal: Swelling, Erythema, Tenderness Integumentary: Tenderness/swelling, Erythema Neurological: Normal speech, Normal tone, Sensation intact, Cranial nerves 3-12 intact, Normal affect, Abnormal gait, Abnormal strength Lymphatics: No axilla or inguinal lymphadenopathy Laboratory Data (last 24 hrs) 03/13/24 03/13/24 03/13/24 12:08 12:08 12:08 WBC 7.40 Hgb 7.6 L Hct 22.6 L Plt Count 224 PT 12.3 INR 1.10 APTT 25.2 Sodium 136 Potassium 4.4 BUN 19 H Creatinine 1.00 Glucose 123 H Total Bilirubin 1.0 AST 27 ALT 18 Alkaline Phosphatase 49 - Problems (1) Status post total hip replacement, right Current Visit: Yes Status: Acute (2) Status post fall Current Visit: Yes Status: Acute (3) Hip hematoma, right Current Visit: Yes Status: Acute (4) Anemia due to acute blood loss Current Visit: Yes Status: Acute Conclusions/ Impression: Plan: 1. Patient status post right total hip arthroplasty status post fall with hematoma to the right hip. Patient with pain on any kind of range of motion. Transfusing 2 units of packed red blood cells. Will wait talking to our orthopedic regarding acceptance to the hospital here or if patient should transfer. Currently patient getting 2 units of packed red blood cells. Will consult at this time and await our orthopedic doctors recommendation. If they recommend admitting her she will need to be admitted for inpatient hospitalization. If they recommend transferring will talk to the ER physician regarding transferring to [facility]. Will continue monitoring her hemodynamics closely. Blood pressure is stable at this time. Critical Care: No Time Spent Managing Pts care (In Minutes): 45
[2024-03-14] MEDS: NA CHLORIDE 0.9% 1,000 ML IV SCH (00:32)
[2024-03-14] MEDS: ACETAMINOPHEN 500 MG TAB PO PRN (00:32)
[2024-03-14 04:39] LABS: PT Prothrombin Time 12.1 SECONDS (9.4-12.5); PTT, Activated Partial Thromb 30.5 SECONDS (24.3-36.9); Protime INR 1.08
[2024-03-14 04:43] LABS: Absolute Eosinophils 0.2 K/uL (0-0.5); Absolute Lymphocytes (CBC) 1.9 K/uL (0.7-4.9); Absolute Monocytes 0.7 K/uL (0.1-1.3); Absolute Neutrophil 4.3 K/uL (1.8-8.0); Basophils % 0.3 % (0-1.3); Eosinophils % 2.9 % (0-4.4); Hematocrit 30.5 % (36.0-45.0); Hemoglobin 10.4 g/dL (12.0-15.0); MCH 31.1 pg (27.0-35.0); MCHC 34.2 g/dL (32.0-36.0); MPV 7.4 fL (7.6-11.3); Monocytes % 9.8 % (3.3-12.3); Nucleated Red Blood Cells % 0.1 % (0-0); Platelets 254 thou/uL (152-406); RBC Red Blood Cell Count 3.36 M/uL (3.86-4.86); Red Cell Distribution Width 14.3 % (12.1-15.2)
[2024-03-14 05:15] LABS: Albumin 2.5 g/dL (3.4-5.0); Albumin/Globulin Ratio 0.9 (1.1-1.8); Anion Gap 7.2 mEq/L (5.0-15.0); Bilirubin Total 1.3 mg/dL (0.2-1.0); Globulin 2.7 g/dL (2.3-3.5); Potassium 4.2 mEq/L (3.5-5.1); Protein, Total 5.2 g/dL (6.4-8.2)
[2024-03-14 05:25] LABS: Band Neutrophils 1 % (0-1); Differential Total Cells Count 100; Eosinophils 5 % (0-3); Lymphocytes 24 % (15-42); Monocytes 7 % (0-10); Nucleated Red Blood Cells 1 /100WBC; Segmented Neutrophils 63 % (40-80)
[2024-03-14 05:26] LABS: Blood Morphology Comment NOT SEEN (NOT SEEN); Platelet Estimate ADEQ
--- NOTE | 2024-03-14 08:49 | P.PN ---
Subjective Date of Service: 03/14/24 Chief Complaint: Hematoma of the right hip admitted for Fall, recent RTH, Hematoma R) hip anemia <Olga Newton - Last Filed: 03/14/24 16:28> Date of Service: 03/14/24 <Minda Pang - Last Filed: 03/16/24 02:55> Review of Systems 10-point ROS is otherwise unremarkable <Olga Newton - Last Filed: 03/14/24 16:28> Physical Examination - Vital Signs Temperature: 97.5 F Blood Pressure: 185/79 Pulse: 67 Respirations: 18 Pulse Ox (%): 94 - Physical Exam General: Alert, In no apparent distress, Oriented x3 HEENT: Atraumatic, Normocephalic Neck: Supple, 2+ carotid pulse no bruit Respiratory: Clear to auscultation bilaterally, Normal air movement Cardiovascular: Normal pulses, Regular rate/rhythm, Normal S1 S2 Capillary refill: <2 Seconds Gastrointestinal: Normal bowel sounds, Soft and benign Musculoskeletal: Other (RLE weakness secondary to right hip replacement) Integumentary: No breakdown, Other (RTH surgical dressing CDI, brusing, hematoma ) Neurological: Normal speech, Normal strength at 5/5 x4 extr, Sensation intact - Studies Laboratory Data (last 24 hrs) 03/13/24 03/13/24 03/13/24 12:08 12:08 12:08 WBC 7.40 Hgb 7.6 L Hct 22.6 L Plt Count 224 PT 12.3 INR 1.10 APTT 25.2 Sodium 136 Potassium 4.4 BUN 19 H Creatinine 1.00 Glucose 123 H Total Bilirubin 1.0 AST 27 ALT 18 Alkaline Phosphatase 49 <Olga Newton - Last Filed: 03/14/24 16:28> Assessment And Plan - Plan - Problems (1) Status post total hip replacement, right Current Visit: Yes Status: Acute (2) Status post fall Current Visit: Yes Status: Acute (3) Hip hematoma, right Current Visit: Yes Status: Acute (4) Anemia due to acute blood loss Current Visit: Yes Status: Acute (5) hypertensive urgency Current Visit: Yes Status: Acute Conclusions/ Impression: Plan: 1. Patient status post right total hip arthroplasty status post fall with hematoma to the right hip. Patient with pain on any kind of range of motion. Will wait talking to our orthopedic regarding acceptance to the hospital here or if patient should transfer. Currently patient getting 2 units of packed red blood cells. Will consult at this time and await our orthopedic doctors recommendation. If they recommend admitting her she will need to be admitted for inpatient hospitalization. If they recommend transferring will talk to the ER physician regarding transferring to [facility] hospital. Will continue monitoring her hemodynamics closely. Blood pressure is stable at this time. 2. Status post right total hip replacement/fall pending acute inpatient rehab [facility], apparently, PT eval, fall precaution, 3. As needed analgesics, tramadol, antihypertensives, resume home antihypertensive 4. Transfusing 2 units of packed red blood cells, trend H&H, normal saline at 75 cc an hour Full code DVT SCDs Diet cardiac Disposition pending acute rehab Critical Care: No Discharge Plan: Other (in pt rehab) Plan to discharge in: 48 Hours - Code Status/Comfort Care Code Status: Full Code Critical Care: No Time Spent Managing PTS Care (In Minutes): 35 <Olga Newton - Last Filed: 03/14/24 16:28> - Current Problems (Diagnosis) (1) Status post total hip replacement, right Current Visit: Yes Status: Acute (2) Status post fall Current Visit: Yes Status: Acute (3) Hip hematoma, right Current Visit: Yes Status: Acute (4) Anemia due to acute blood loss Current Visit: Yes Status: Acute <Minda Pang - Last Filed: 03/16/24 02:55> Date of Service: 03/14/24 Chart has been reviewed. Events of the last 24 hours have been noted. Case discussed with OSMAR. I performed a substantial part of the MDM during this patient's care today. I personally made or approved the documented management plan and acknowledge its risk of complications. I agree with the findings and documentation provided in the OSMAR's notes Hemoglobin has been stable. Hemodynamically improved. Blood pressure slightly elevated. Will adjust blood pressure medications. Working on inpatient rehab at [facility] in [place]. <Minda Pang - Last Filed: 03/16/24 02:55>
[2024-03-14] MEDS: HYDRALAZINE HCL 20 MG/ML VIAL IV ONE (09:49)
[2024-03-14] MEDS: HYDRALAZINE HCL 25 MG TABLET PO SCH (13:28)
[2024-03-14] MEDS: AMLODIPINE 5 MG TAB PO ONE (14:04)
[2024-03-14 14:19] LABS: Absolute Eosinophils 0.1 K/uL (0-0.5); Absolute Monocytes 0.6 K/uL (0.1-1.3); Absolute Neutrophil 5.6 K/uL (1.8-8.0); Basophils % 0.4 % (0-1.3); Eosinophils % 1.5 % (0-4.4); Hematocrit 33.4 % (36.0-45.0); Hemoglobin 11.3 g/dL (12.0-15.0); Lymphocytes % 24.1 % (15.3-44.8); MCH 30.5 pg (27.0-35.0); MCHC 33.9 g/dL (32.0-36.0); MCV 90.1 fL (80-100); MPV 7.2 fL (7.6-11.3); Monocytes % 6.7 % (3.3-12.3); Neutrophils % 67.3 % (41.7-73.7); Nucleated Red Blood Cells % 0.1 % (0-0); Platelets 267 thou/uL (152-406); Red Cell Distribution Width 14.3 % (12.1-15.2)
[2024-03-14] MEDS: HYDRALAZINE HCL 20 MG/ML VIAL IV PRN (16:23)
[2024-03-14] MEDS: lisinopriL 20 MG TAB PO ONE (16:43)
[2024-03-14] MEDS: FUROSEMIDE 40 MG/4 ML VIAL IV ONE (16:43)
[2024-03-15] MEDS: FUROSEMIDE 20 MG TABLET PO SCH (08:34)
[2024-03-15] MEDS: POTASSIUM CL SA 10 MEQ TAB PO SCH (08:34)
[2024-03-15] MEDS: lisinopriL 10 MG TAB PO SCH (08:34)
[2024-03-15] MEDS ORDERED: lisinopriL 10 MG TAB PO SCH (09:00)
[2024-03-15] MEDS: ONDANSETRON 4 MG/2 ML VIAL IV PRN (09:53)
[2024-03-15 11:44] LABS: Absolute Eosinophils 0.1 K/uL (0-0.5); Absolute Lymphocytes (CBC) 1.6 K/uL (0.7-4.9); Absolute Monocytes 0.8 K/uL (0.1-1.3); Absolute Neutrophil 6.7 K/uL (1.8-8.0); Basophils % 0.4 % (0-1.3); Eosinophils % 1.3 % (0-4.4); Hemoglobin 11.3 g/dL (12.0-15.0); Lymphocytes % 16.8 % (15.3-44.8); MCH 30.6 pg (27.0-35.0); MCHC 34.2 g/dL (32.0-36.0); MCV 89.3 fL (80-100); Monocytes % 9.1 % (3.3-12.3); Neutrophils % 72.4 % (41.7-73.7); Nucleated Red Blood Cells % 0.1 % (0-0); Platelets 282 thou/uL (152-406); RBC Red Blood Cell Count 3.69 M/uL (3.86-4.86); Red Cell Distribution Width 14.6 % (12.1-15.2)
[2024-03-15 12:00] LABS: Albumin 2.7 g/dL (3.4-5.0); Anion Gap 10.9 mEq/L (5.0-15.0); Bilirubin Total 1.9 mg/dL (0.2-1.0); Globulin 2.8 g/dL (2.3-3.5); Potassium 3.9 mEq/L (3.5-5.1); Protein, Total 5.5 g/dL (6.4-8.2)
[2024-03-15] MEDS: METOPROLOL TARTRATE 5 MG/5 ML INJ IV STA (12:22)
[2024-03-15] MEDS: CYANOCOBALAMIN 1000MCG/ML INJ IM ONE (14:16)
--- NOTE | 2024-03-15 18:42 | P.PN ---
Date of Service: 03/15/24 Subjective no overnight events, pt is ready to be active again, she wants to work with PT/OT today Review of Systems 10-point ROS is otherwise unremarkable vitals: reviewed Physical Examination Reviewed General: Alert, In no apparent distress, Oriented x3 HEENT: Atraumatic, PERRLA, Mucous membr. moist/pink, EOMI, Sclerae nonicteric Neck: Supple, 2+ carotid pulse no bruit, No LAD, Without JVD or thyroid abnormality Respiratory: Clear to auscultation bilaterally, Normal air movement Cardiovascular: Regular rate/rhythm, Normal S1 S2 Gastrointestinal: Normal bowel sounds, Soft and benign, Non-distended, No tenderness Musculoskeletal: Swelling, Erythema, Tenderness Integumentary: Tenderness/swelling, Erythema, ecchymosis to right lateral hip under dressing, unroofed blister to left gongora Neurological: Normal speech, Normal tone, Sensation intact, Cranial nerves 3-12 intact, Normal affect, Abnormal gait, Abnormal strength Lymphatics: No axilla or inguinal lymphadenopathy Laboratory Data (last 24 hrs) - Problems (1) Status post total hip replacement, right Current Visit: Yes Status: Acute (2) Status post fall Current Visit: Yes Status: Acute (3) Hip hematoma, right Current Visit: Yes Status: Acute (4) Anemia due to acute blood loss Current Visit: Yes Status: Acute Conclusions/ Impression: Plan: Patient status post right total hip arthroplasty status post fall with hematoma to the right hip. Patient with pain on any kind of range of motion. Transfused 2 units of packed red blood cells. Admit and re-evaluate H/H. Will continue monitoring her hemodynamics closely. Blood pressure was trending high. It is stable at this time. Pt to work with PT today and see if placement at [facility] would best serve her condition/needs [facility] auth pending [facility] Critical Care: No <Marilee Batista Gian - Last Filed: 03/15/24 18:34> Chart has been reviewed. Events of the last 24 hours have been noted. Case discussed with OSMAR. I performed a substantial part of the MDM during this patient's care today. I personally made or approved the documented management plan and acknowledge its risk of complications. I agree with the findings and documentation provided in the OSMAR's notes Hemoglobin has been stable. Hemodynamically improved. Blood pressure slightly elevated. Will adjust blood pressure medications. Working on inpatient rehab at [facility] in [place]. Pt doing much better <Minda Pang - Last Filed: 03/16/24 02:57>
--- NOTE | 2024-03-16 02:52 | P.HP ---
Date of Service: 03/13/24 History of Present Illness: Patient is a 83-year-old female who is status post right total hip arthroplasty. This was done on March 08, 2024. Patient was monitored postoperatively and she was discharged on the following day. Patient stated that when she was getting ready to go home she felt lightheaded and faint. At home she was weak and on Friday while she was at home she was not really getting around well and staying in bed quite a bit because she was having more pain out of proportion and what she should have been having. On , she was looking weaker and really feeling nauseated. On Friday she had gone to the bathroom and fallen into the bathtub. She was able to pull herself out of there and came into the ER. In the ER initial x-rays did not reveal any significant abnormalities. Patient went home and at home she was still not really doing much. This morning her blood pressure was 60 over 40s. EMS was called and apparently they gave her a round of epi and IV fluids and brought her back into the emergency room. Her hemoglobin had dropped from 9.4 at discharge to 7.6. CT scans done today showed a 7 cm x 1.5 cm hematoma. Patient is having exquisite tenderness on any kind of movement of the right lower extremity. She appears to have a significant amount of bleeding into the right leg. Her orthopedic physician was contacted regarding transfer of care; however, he felt patient could get transfused at her hospital and possibly discharge. She does appear to have significant bleeding and at this time will probably advise for patient to be transferred under his care. I will talk to her orthopedic doctor and see what they recommend. - Past Medical/Surgical History Past Medical History: Patient denies medical history -: Right total hip arthroplasty; spinal anesthesia - Family History Father Family History: Reviewed- Non-Contributory - Social History Smoking Status: Former smoker Alcohol use: No CD- Drugs: No - Medication Home medications reviewed - Allergy NKDA Review of Systems 10-point ROS is otherwise unremarkable Physical Examination Reviewed General: Alert, In no apparent distress, Oriented x3 HEENT: Atraumatic, PERRLA, Mucous membr. moist/pink, EOMI, Sclerae nonicteric Neck: Supple, 2+ carotid pulse no bruit, No LAD, Without JVD or thyroid abnormality Respiratory: Clear to auscultation bilaterally, Normal air movement Cardiovascular: Regular rate/rhythm, Normal S1 S2 Gastrointestinal: Normal bowel sounds, Soft and benign, Non-distended, No tenderness Musculoskeletal: Swelling, Erythema, Tenderness Integumentary: Tenderness/swelling, Erythema Neurological: Normal speech, Normal tone, Sensation intact, Cranial nerves 3-12 intact, Normal affect, Abnormal gait, Abnormal strength Lymphatics: No axilla or inguinal lymphadenopathy Laboratory Data (last 24 hrs) 03/13/24 03/13/24 03/13/24 12:08 12:08 12:08 WBC 7.40 Hgb 7.6 L Hct 22.6 L Plt Count 224 PT 12.3 INR 1.10 APTT 25.2 Sodium 136 Potassium 4.4 BUN 19 H Creatinine 1.00 Glucose 123 H Total Bilirubin 1.0 AST 27 ALT 18 Alkaline Phosphatase 49 - Problems (1) Status post total hip replacement, right Current Visit: Yes Status: Acute (2) Status post fall Current Visit: Yes Status: Acute (3) Hip hematoma, right Current Visit: Yes Status: Acute (4) Anemia due to acute blood loss Current Visit: Yes Status: Acute Conclusions/ Impression: Plan: 1. Patient status post right total hip arthroplasty status post fall with hematoma to the right hip. Patient with pain on any kind of range of motion. Transfusing 2 units of packed red blood cells. Will wait talking to our orthopedic regarding acceptance to the hospital here or if patient should transfer. Currently patient getting 2 units of packed red blood cells. Will consult at this time and await our orthopedic doctors recommendation. If they recommend admitting her she will need to be admitted for inpatient hospitalization. If they recommend transferring will talk to the ER physician regarding transferring to [facility] hospital. Will continue monitoring her hemodynamics closely. Blood pressure is stable at this time. Critical Care: No Time Spent Managing Pts care (In Minutes): 45
--- NOTE | 2024-03-16 11:14 | RAD REPORT ---
EXAMINATION: US RIGHT LOWER EXTREMITY VENOUS DOPPLER CLINICAL INDICATION: SWELLING RIGHT TECHNIQUE: Complete bilateral duplex sonography of the RIGHT lower extremity veins was performed. The examination included compression for vein patency, color Doppler imaging and flow augmentation in response to distal compression of the distal external iliac, common femoral, femoral, popliteal, tibi al, and great and small saphenous veins. COMPARISON: No prior exam. FINDINGS: Duplex sonography testing of the veins of the RIGHT lower extremity was performed. Color flow imaging shows all veins to be compressible with [id number] color filling. Pulsatile and phasic flow is present within all lower extremity deep and superficial veins examined. IMPRESSION: There is no deep vein or superficial vein thrombosis.
--- NOTE | 2024-03-16 14:08 | P.PN ---
Date of Service: 03/16/24 Subjective no overnight events, pt is ready to be active again, she wants to go to [facility] today with PT/OT Review of Systems 10-point ROS is otherwise unremarkable vitals: reviewed Physical Examination Reviewed General: Alert, In no apparent distress, Oriented x3 HEENT: Atraumatic, PERRLA, Mucous membr. moist/pink, EOMI, Sclerae nonicteric Neck: Supple, 2+ carotid pulse no bruit, No LAD, Without JVD or thyroid abnormality Respiratory: Clear to auscultation bilaterally, Normal air movement Cardiovascular: Regular rate/rhythm, Normal S1 S2 Gastrointestinal: Normal bowel sounds, Soft and benign, Non-distended, No tenderness Musculoskeletal: Swelling, Erythema, Tenderness, right lower ext edema noted, + pulses, + sensation, No excess hematoma/ecchymosis noted. Lightening ecchymosis to lateral right hip over and inferior to surgical site Integumentary: Tenderness/swelling, Erythema, ecchymosis to right lateral hip under dressing, unroofed blister to left gongora Neurological: Normal speech, Normal tone, Sensation intact, Cranial nerves 3-12 intact, Normal affect, Abnormal gait, Abnormal strength Lymphatics: No axilla or inguinal lymphadenopathy Laboratory Data (last 24 hrs) - Problems (1) Status post total hip replacement, right Current Visit: Yes Status: Acute (2) Status post fall Current Visit: Yes Status: Acute (3) Hip hematoma, right Current Visit: Yes Status: Acute (4) Anemia due to acute blood loss Current Visit: Yes Status: Acute Conclusions/ Impression: Plan: Patient status post right total hip arthroplasty status post fall with hematoma to the right hip. Patient with pain on any kind of range of motion. Transfused 2 units of packed red blood cells. Hemoglobin stable. Admit and re-evaluate H/H. Will continue monitoring her hemodynamics closely. Blood pressure was trending high. It is stable at this time. 137/64, 74 Pt to work with PT today and see if placement at [facility] would best serve her condition/needs [facility] auth pending - insurance denied. Would auth SNF. Family will be notified. US for DVT r/o - negative US. TEDS Critical Care: No
[2024-03-16 15:38] VITALS: BMI 31.3
[2024-03-16] MEDS: ENOXAPARIN 40 MG/0.4 ML SQ SCH (17:13)
[2024-03-16] MEDS ORDERED: POLYETHYL GLY 3350 17 GM/DOSE PO PRN (21:41)
[2024-03-16] MEDS ORDERED: MELATONIN 5 MG TABLET PO PRN (21:41)
[2024-03-16] MEDS: DOCUSATE NA/SENNA CONC 1 TAB PO PRN (21:57)
--- NOTE | 2024-03-17 12:38 | P.PN ---
Date of Service: 03/17/24 Subjective no overnight events, pt is ready to be active again, she wants to go to [facility] today with PT/OT, [facility] was denied insurance auth. Orders for SNF placement pending Review of Systems 10-point ROS is otherwise unremarkable vitals: reviewed Physical Examination Reviewed General: Alert, In no apparent distress, Oriented x3 HEENT: Atraumatic, PERRLA, Mucous membr. moist/pink, EOMI, Sclerae nonicteric Neck: Supple, 2+ carotid pulse no bruit, No LAD, Without JVD or thyroid abnormality Respiratory: Clear to auscultation bilaterally, Normal air movement Cardiovascular: Regular rate/rhythm, Normal S1 S2 Gastrointestinal: Normal bowel sounds, Soft and benign, Non-distended, No tenderness Musculoskeletal: Swelling, Erythema, Tenderness, right lower ext edema noted, + pulses, + sensation, No excess hematoma/ecchymosis noted. Lightening ecchymosis to lateral right hip over and inferior to surgical site Integumentary: Tenderness/swelling, Erythema, ecchymosis to right lateral hip under dressing Neurological: Normal speech, Normal tone, Sensation intact, Cranial nerves 3-12 intact, Normal affect, Abnormal gait, Abnormal strength Lymphatics: No axilla or inguinal lymphadenopathy Laboratory Data (last 24 hrs) - Problems (1) Status post total hip replacement, right Current Visit: Yes Status: Acute (2) Status post fall Current Visit: Yes Status: Acute (3) Hip hematoma, right Current Visit: Yes Status: Acute (4) Anemia due to acute blood loss Current Visit: Yes Status: Acute Conclusions/ Impression: Plan: Patient status post right total hip arthroplasty status post fall with hematoma to the right hip. Patient with pain on any kind of range of motion. Transfused 2 units of packed red blood cells. Hemoglobin stable. Admit and re-evaluate H/H. Will continue monitoring her hemodynamics closely. Blood pressure was trending high. It is stable at this time. 137/64, 74 Pt to work with PT today and see if placement at [facility] would best serve her condition/needs [facility] auth pending - insurance denied. Would auth SNF. Family will be notified. US for DVT r/o - negative US. TEDS Critical Care: No
--- NOTE | 2024-03-18 12:16 | EKG ---
Test Date: 2024-03-12 Test Time: 23:04:12 Flaring Machine Operator: BETO MEASUREMENT RESULTS: Intervals: Rate: 106 ME: 150 QRSD: 76 QT: 330 QTc: 438 [place]: P: 47 ME: 150 QRS: -48 T: 41 INTERPRETIVE STATEMENTS: Sinus tachycardia Right atrial enlargement Left axis deviation Low voltage QRS Inferior infarct, age undetermined Cannot rule out Anterior infarct, age undetermined Abnormal ECG No previous ECG available for comparison Electronically Signed On 03-18-24 12:13:08 [employer] by Jose Dallas
--- NOTE | 2024-03-18 12:16 | EKG ---
Test Date: 2024-03-13 Test Time: 11:34:18 Head Of Human Resources: QUIANA MEASUREMENT RESULTS: Intervals: Rate: 55 IA: 186 QRSD: 86 QT: 434 QTc: 415 [place]: P: 54 IA: 186 QRS: 10 T: 40 INTERPRETIVE STATEMENTS: Sinus bradycardia Otherwise normal ECG Compared to ECG 03/12/2024 23:04:12 Sinus tachycardia no longer present Atrial abnormality no longer present Left-axis deviation no longer present Myocardial infarct finding no longer present Electronically Signed On 03-18-24 12:12:55 BEACH ATTENDANT by Jose Dallas
--- NOTE | 2024-03-18 15:03 | P.PN ---
Date of Service: 03/18/24 Subjective no overnight events, pt is ready to be active again, pt is doing well, working with PT. Will plan on going home with HH, SN, PT, OT Review of Systems 10-point ROS is otherwise unremarkable vitals: reviewed Physical Examination Reviewed General: Alert, In no apparent distress, Oriented x3 HEENT: Atraumatic, PERRLA, Mucous membr. moist/pink, EOMI, Sclerae nonicteric Neck: Supple, 2+ carotid pulse no bruit, No LAD, Without JVD or thyroid abnormality Respiratory: Clear to auscultation bilaterally, Normal air movement Cardiovascular: Regular rate/rhythm, Normal S1 S2 Gastrointestinal: Normal bowel sounds, Soft and benign, Non-distended, No tenderness Musculoskeletal: Swelling, Erythema, right lower ext edema noted, + pulses, + sensation, No excess hematoma/ecchymosis noted. Lightening ecchymosis to lateral right hip over and inferior to surgical site Integumentary: Tenderness/swelling, Erythema, ecchymosis to right lateral hip. Walking with PT all over the unit with her walker. Neurological: Normal speech, Normal tone, Sensation intact, Cranial nerves 3-12 intact, Normal affect, Abnormal gait, Abnormal strength Lymphatics: No axilla or inguinal lymphadenopathy Laboratory Data (last 24 hrs) - Problems (1) Status post total hip replacement, right Current Visit: Yes Status: Acute (2) Status post fall Current Visit: Yes Status: Acute (3) Hip hematoma, right Current Visit: Yes Status: Acute (4) Anemia due to acute blood loss Current Visit: Yes Status: Acute Conclusions/ Impression: Plan: Patient status post right total hip arthroplasty status post fall with hematoma to the right hip. Transfused 2 units of packed red blood cells. Hemoglobin stable. Pt working with PT HH with SN/OT/PT US for DVT r/o - negative US. TEDS Critical Care: No
[2024-03-19 01:07] VITALS: O2SAT 97
[2024-03-19 04:59] VITALS: TEMP 97.7
[2024-03-19 08:22] VITALS: BP 140/75
--- NOTE | 2024-03-19 20:42 | P.DS ---
Admission Date: 03/13/24 Discharge Date: 03/19/24 Disposition: DC HOME/HOME HEALTH CARE Discharge Condition: GOOD Reason for Admission: Hematoma of the right hip Brief History of Present Illness: Patient is a 83-year-old female who is status post right total hip arthroplasty. This was done on March 08, 2024. Patient was monitored postoperatively and she was discharged on the following day. Patient stated that when she was getting ready to go home she felt lightheaded and faint. At home she was weak and on Friday while she was at home she was not really getting around well and staying in bed quite a bit because she was having more pain out of proportion and what she should have been having. On , she was looking weaker and really feeling nauseated. On Friday she had gone to the bathroom and fallen into the bathtub. She was able to pull herself out of there and came into the ER. In the ER initial x-rays did not reveal any significant abnormalities. Patient went home and at home she was still not really doing much. This morning her blood pressure was 60 over 40s. EMS was called and apparently they gave her a round of epi and IV fluids and brought her back into the emergency room. Her hemoglobin had dropped from 9.4 at discharge to 7.6. CT scans done today showed a 7 cm x 1.5 cm hematoma. Patient is having exquisite tenderness on any kind of movement of the right lower extremity. She appears to have a significant amount of bleeding into the right leg. Her orthopedic physician was contacted regarding transfer of care; however, he felt patient could get transfused at her hospital and possibly discharge. She does appear to have significant bleeding and at this time will probably advise for patient to be transferred under his care. I will talk to her orthopedic doctor and see what they recommend. Hospital Course: Ms. Pollard necessitated some blood transfusions but her hemoglobin has been stable since that time. She has been working well with physical therapy. She initially wanted inpatient rehab but was progressing well so was going to do SNF rehab. Patient has since that time been doing increased exercises with PT and walking with her walker with standby assist.. She qualified for home health with PT/OT and penitentiary. Continue rehab exercises, in concert with home health/penitentiary/PT/OT. Follow-up with Dr. Quesada next week. Take care and be safe! Vital Signs/Physical Exam: Temp Pulse Resp BP Pulse Ox 97.7 F 65 16 140/75 98 03/19/24 08:00 03/19/24 08:21 03/19/24 08:00 03/19/24 08:21 03/19/24 08:00 General: Alert, In no apparent distress, Oriented x3 HEENT: Atraumatic, Normocephalic Neck: Supple, 2+ carotid pulse no bruit Respiratory: Clear to auscultation bilaterally, Normal air movement Cardiovascular: Normal pulses, Regular rate/rhythm Capillary refill: <2 Seconds Gastrointestinal: Normal bowel sounds, Soft and benign Musculoskeletal: No clubbing, Other (Is post right hip arthroplasty) Integumentary: Other (Draining, smaller, green-brown hematoma down the right lateral and posterior leg) Neurological: Normal speech, Normal tone, Normal affect Lymphatics: No axilla or inguinal lymphadenopathy External genitalia: Deferred Rectal: Deferred Laboratory Data at Discharge: WBC 9.30 thou/uL (4.3-10.9) 03/15/24 11:32 Hgb 11.3 g/dL (12.0-15.0) L 03/15/24 11:32 Hct 33.0 % (36.0-45.0) L 03/15/24 11:32 Plt Count 282 thou/uL (152-406) 03/15/24 11:32 PT 12.1 SECONDS (9.4-12.5) 03/14/24 04:05 INR 1.08 03/14/24 04:05 APTT 30.5 SECONDS (24.3-36.9) 03/14/24 04:05 Sodium 132 mEq/L (136-145) L 03/15/24 11:32 Potassium 3.9 mEq/L (3.5-5.1) 03/15/24 11:32 BUN 12 mg/dL (7-18) 03/15/24 11:32 Creatinine 0.79 mg/dL (0.55-1.02) 03/15/24 11:32 Glucose 140 mg/dL (74-106) H 03/15/24 11:32 Total Bilirubin 1.9 mg/dL (0.2-1.0) H 03/15/24 11:32 AST 24 U/L (15-37) 03/15/24 11:32 ALT 17 U/L (13-56) 03/15/24 11:32 Alkaline Phosphatase 53 U/L (45-117) 03/15/24 11:32 Home Medications: lisinopriL [Lisinopril] 30 mg PO DAILY 03/14/24 Docusate/Senna [Senokot-S*] 2 tab PO BEDTIME PRN #1 box 03/19/24 Furosemide [Lasix*] 20 mg PO BIDL #60 tab 03/19/24 Hydralazine [Apresoline*] 25 mg PO TID #180 tab 03/19/24 Potassium Oral Tab [Klor-Con 10 mEq Tab*] 20 meq PO DAILY #90 tab 03/19/24 New Medications: Hydralazine [Apresoline*] 25 mg PO TID #180 tab Potassium Oral Tab [Klor-Con 10 mEq Tab*] 20 meq PO DAILY #90 tab Furosemide [Lasix*] 20 mg PO BIDL #60 tab Docusate/Senna [Senokot-S*] 2 tab PO BEDTIME PRN #1 box PRN Reason: Constipation Physician Discharge Instructions: Continue rehab exercises, in concert with home health/penitentiary/PT/OT. Follow-up with Dr. Quesada next week. Take care and be safe! Diet: Regular Activity: Fall precautions Followup: Latrice Quesada MD [Primary Care Provider] - 1-2 Weeks
== END 2024-03-19 10:59 | disposition home health service (06) | DRG 605 ==
LOC: ER 10:59 → ERHOLD 19:25 → 2ND 21:35
PROVIDERS: ADMIT Hospitalist; ATTEND Internal Medicine
PROC: 30233N1 Transfusion of Nonautologous Red Blood Cells into Peripheral Vein, Percutaneous Approach (ICD-10-PCS; principal; 2024-03-13)
DX: S70.01XA Contusion of right hip, initial encounter (principal); D62 Acute posthemorrhagic anemia; I10 Essential (primary) hypertension; E78.5 Hyperlipidemia, unspecified; E86.0 Dehydration; I16.0 Hypertensive urgency; E78.00 Pure hypercholesterolemia, unspecified; D64.9 Anemia, unspecified; Z96.641 Presence of right artificial hip joint; Z87.891 Personal history of nicotine dependence; W18.30XA Fall on same level, unspecified, initial encounter; Y93.89 Activity, other specified; Y92.002 Bathroom of unspecified non-institutional (private) residence as the place of occurrence of the external cause; Y99.9 Unspecified external cause status
CPT/HCPCS: 36415; 71045; 74177; 80053; 81003; 82607; 83540; 83605; 84484; 85025; 85610; 85730; 86850; 86900; 86901; 86920; 87040; 93005; 93971; 97110; 97116; 97161; 97165; 97530; 99285; J0360; J1650; J1940; J2405; J3420; J7030; J7050; P9016; Q9967